=== PATIENT | female | born 1985 | race Caucasian/White ===

== ENCOUNTER 2017-01-23 18:12 | Inpatient (IN) | payer OTHER ==
[~2017-01-23] VITALS: Ht 162.6 cm; Wt 122.0 kg
[~2017-01-23 18:12] MED LIST: BREAST PUMP MC; ENDOCET 5-3251 EACH PO; FOLIC ACID0.4 MG PO; IBUPROFEN800 MG PO; PRENATAL TABLE1 EAC3 PO
[2017-01-23 18:27] VITALS: BP 111/66
[2017-01-23 19:45] LABS: EOSINOPHIL (%) 1.3 % (0-5); EOSINOPHIL COUNT 0.2 K/uL (0-0.3); HEMATOCRIT 37.4 % (36.0-46.0); IMMATURE GRANULOCYTE (%) 0.4 % (0.0-0.7); IMMATURE GRANULOCYTE COUNT 0.1 K/uL; INSTRUMENT ABS NEUTROPHIL CT 10.3 K/uL; LYMPHOCYTE COUNT 2.2 K/uL (1.0-2.8); MCH 26.3 PG (29.0-34.0); MCHC 32.9 G/DL (30.0-36.0); MCV 80.1 FL (83-99); MEAN PLAT.VOLUME 13.2 uM^3 (9.5-12.4); MONOCYTE (%) 6.5 % (3-12); MONOCYTE COUNT 0.9 K/uL (0-0.8); NEUTROPHIL (%) 75.4 % (45-76); NEUTROPHIL COUNT 10.3 K/uL (1.8-6.4); PLATELET COUNT 171 K/uL (156-360); RBC DIS.WIDTH-CV 15.6 % (11.8-14.6); RED BLOOD COUNT 4.67 M/uL (3.80-5.20); WHITE BLOOD COUNT 13.6 K/uL (4.1-10.2)
[2017-01-23] MEDS ORDERED: ENDOCET 5-3251 EACH PO (20:57)
[2017-01-23 22:33] VITALS: BP 88/52
[2017-01-23 23:42] VITALS: BP 113/64
[2017-01-24 02:00] VITALS: BP 101/58
[2017-01-24 03:32] VITALS: BP 114/57
[2017-01-24 05:56] LABS: EOSINOPHIL (%) 1.4 % (0-5); EOSINOPHIL COUNT 0.2 K/uL (0-0.3); HEMATOCRIT 33.2 % (36.0-46.0); IMMATURE GRANULOCYTE (%) 0.4 % (0.0-0.7); IMMATURE GRANULOCYTE COUNT 0.1 K/uL; INSTRUMENT ABS NEUTROPHIL CT 8.8 K/uL; MCH 26.6 PG (29.0-34.0); MCHC 32.5 G/DL (30.0-36.0); MCV 81.8 FL (83-99); MEAN PLAT.VOLUME 13.6 uM^3 (9.5-12.4); MONOCYTE (%) 7.1 % (3-12); MONOCYTE COUNT 0.8 K/uL (0-0.8); NEUTROPHIL (%) 73.9 % (45-76); NEUTROPHIL COUNT 8.8 K/uL (1.8-6.4); PLATELET COUNT 146 K/uL (156-360); RBC DIS.WIDTH-CV 15.7 % (11.8-14.6); RBC DIS.WIDTH-SD 46.6 % (39-53); RED BLOOD COUNT 4.06 M/uL (3.80-5.20); WHITE BLOOD COUNT 11.9 K/uL (4.1-10.2)
[2017-01-24 15:02] VITALS: BP 128/79
[2017-01-25 07:47] VITALS: BP 117/59
[2017-01-25] MEDS ORDERED: MOTRIN800 MG PO (10:30)
[2017-01-25] MEDS ORDERED: IBUPROFEN800 MG PO (10:30)
[2017-01-25 11:45] VITALS: BP 128/78
== END 2017-01-25 14:35 | disposition home or self-care (01) | DRG 765 ==
LOC: LDRP-OP 18:12 → 2WEST 18:15 → LDRP-OP 03-05 09:22
PROVIDERS: Obstetrics & Gynecology
DX: O99.214 Obesity complicating childbirth (principal); Z68.42 Body mass index [BMI] 45.0-49.9, adult; O34.211 Maternal care for low transverse scar from previous cesarean delivery; Z30.2 Encounter for sterilization; O69.81X1 Labor and delivery complicated by cord around neck, without compression, fetus 1; Z37.0 Single live birth; Z3A.38 38 weeks gestation of pregnancy; E66.9 Obesity, unspecified; Z80.0 Family history of malignant neoplasm of digestive organs; Z80.41 Family history of malignant neoplasm of ovary; Z83.3 Family history of diabetes mellitus; Z23 Encounter for immunization; Z88.0 Allergy status to penicillin
CPT/HCPCS: 85025; 86850; 86900; 86901; 88302; 90686; J0690; J1200; J2274; J2405; J2590; J3010; J7120